=== PATIENT | male | born 1965 | race African-American/Black ===

== ENCOUNTER 2017-04-04 12:06 | Emergency (ER) | payer OTHER ==
[2017-04-04 12:13] VITALS: BP 149/88; PULSE 88; TEMP 98.1; BMI 47.3
--- NOTE | 2017-04-04 13:03 | PDOC ---
History of Present Illness - General Chief Complaint: Injury Stated Complaint: FALL/ LT SIDE PAIN, SOB Time Seen by Provider: 04/04/17 12:38 History Source: Patient Exam Limitations: No Limitations - History of Present Illness Initial Comments: 04/04/17 13:00 CHIEF COMPLAINT: Accidental fall, left rib pain. HISTORY OF PRESENT ILLNESS: Patient is a 51-year-old male, morbidly obese, history of hypertension and asthma presents emergency department for evaluation of left rib pain. 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 Denies any respiratory difficulty only pain to ribs on inspiration. Patient denies hitting his head or any further injury. MEDS: See medication list ALLERGIES: None REVIEW OF SYSTEMS: GENERAL/CONSTITUTIONAL: Awake alert and oriented HEAD, EYES, EARS, NOSE AND THROAT: No change in vision. No facial edema, no bruising. NO active bleeding. Nares intact. RESPIRATORY: No cough, wheezing, or hemoptysis. CARDIAC: Denies chest pain, no shortness of breathe. MUSCULOSKELETAL: No spinal point tenderness, Good ROM to all four extremities. NO CVA tenderness. No lateral neck pain. Pain to left ribs on palpation no crepitus GI/: Denies abdominal pain, no nausea or vomiting, no bloody stool, no Hematuria. SKIN : No erythema or bruising noted. No abrasion or lacerations. NEUROLOGIC: No loss of consciousness, no numbness or tingling. PHYSICAL EXAM: GENERAL: Awake and alert and oriented x3. EYES: The pupils are equal, round, and reactive to light, with clear, conjunctiva. Good extraocular movement. No nystagmus NOSE: No nasal trauma . Midface stable MOUTH: Teeth intact. EARS: The ear canals and tympanic membranes are normal without trauma. No drainage. NECK: No Lower cervical C-spine tenderness, no pain with chin to chest. CHEST: The lungs are clear without crackles, or wheezes. No subcutaneous emphysema. No crepitus. HEART: Heart is regular rhythm, with normal S1 and S2, no murmurs. ABDOMEN: The abdomen is soft and nontender with normal bowel sounds. There is no guarding or rebound. MUSCULOSKELETAL: No spinal point tenderness. No bruising or erythema. Pelvis stable. Pain on palpation to left lateral ribs, no crepitus, no bruising. RECTAL: Patient refused. EXTREMITIES: Extremities are normal. No visible traumatic injury. NEUROLOGICAL:Mental status: The patient is oriented x3. No Generalized headache , Romberg - SKIN: Without edema, erythema or bruising. No abrasions or lacerations. Past History - Past Medical History Allergies/Adverse Reactions: Allergies Allergy/AdvReac Type Severity Reaction Status Date / Time No Known Allergies Allergy Verified 04/04/17 12:10 Home Medications: Ambulatory Orders Albuterol Sulfate [Proventil HFA Inhaler -] 1 - 2 inh PO QID 10/05/13 Amlodipine Besylate [Norvasc -] 10 mg PO DAILY 10/05/13 Fluticasone Propionate [Flovent Diskus] 250 mcg IH ASDIR 10/05/13 Hydrochlorothiazide [Hctz -] 25 mg PO DAILY 10/05/13 Montelukast Na [Singulair -] 10 mg PO HS 10/05/13 Quinapril HCl [Accupril -] 40 mg PO DAILY 10/05/13 Ibuprofen [Motrin -] 600 mg PO TID #21 tablet 10/06/13 Sulfamethoxazole/Trimethoprim [Bactrim DS -] 1 tab PO BID #14 tablet 10/06/13 Ibuprofen [Motrin -] 600 mg PO QID #28 tablet 04/04/17 Asthma: Yes HTN: Yes Other medical history: MORBI.OBESTIY - Surgical History Lung Surgery: Yes - Psycho/Social/Smoking Cessation Hx Anxiety: No Suicidal Ideation: No Smoking History: Never smoked Have you smoked in the past 12 months: No Information on smoking cessation initiated: No Hx Alcohol Use: No Drug/Substance Use Hx: No Substance Use Type: None *Physical Exam - Vital Signs Last Vital Signs Temp Pulse Resp BP Pulse Ox 98.1 F 88 18 149/88 100 04/04/17 12:11 04/04/17 12:11 04/04/17 12:11 04/04/17 12:11 04/04/17 12:11 ED Treatment Course - RADIOLOGY Radiology Studies Ordered: Category Date Time Status CHEST PA & LAT [RAD] Stat Radiology 04/04/17 12:56 Ordered RIBS-LEFT SIDE [RAD] Stat Radiology 04/04/17 12:56 Ordered Medical Decision Making - Medical Decision Making 04/04/17 13:03 A/P: Patient here for evaluation of left rib injury, sent to x-ray. 04/04/17 13:48 X-rays negative for acute cardiopulmonary disease as well as acute rib fracture. Patient with pain 05/24. Will give one tab of percocet prior to DC. Patient with rib contusion will DC patient on Motrin, follow-up if any increased pain respiratory difficulty or any other concerns. 04/04/17 13:55 *DC/Admit/Observation/Transfer Diagnosis at time of Disposition: Rib pain Accidental fall Qualifiers: Encounter type: initial encounter Qualified Code(s): W19.XXXA - Unspecified fall, initial encounter - Discharge Dispostion Disposition: HOME Condition at time of disposition: Good Admit: No - Prescriptions Prescriptions: Ibuprofen [Motrin -] 600 mg PO QID #28 tablet - Referrals Referrals: Terrence Vital MD [Primary Care Provider] - - Patient Instructions Printed Discharge Instructions: DI for Rib Contusion Additional Instructions: Motrin for pain If any increased pain, respiratory difficulty, or any other concerns return to ER - Post Discharge Activity Work/School Note: Back to Work
== END 2017-04-04 14:00 | disposition home or self-care (01) ==
LOC: JERFT 12:06
CPT/HCPCS: 71020-TC; 71101-TC; 99281-25

== ENCOUNTER 2023-08-18 09:15 | Inpatient (IN) | payer OTHER ==
[2023-08-18] MEDS ORDERED: AZITHROMYCIN IVPB 500 MG in DEXTROSE 5%-WATER - 250 ML IVPB ONE (11:06)
[2023-08-18 11:08] LABS: HEMATOCRIT 40.5 % (35.4-49); MCH 28.8 pg (25.7-33.7); MCHC 32.2 g/dl (32.0-35.9); MEAN CELL VOLUME 89.3 fl (80-96); MEAN PLT VOLUME 8.9 fl (7.5-11.1); PLATELET COUNT 209 10^3/uL (134-434); RBC 4.53 M/mm3 (4.00-5.60); RDW 15.4 % (11.9-15.9); WHITE BLOOD COUNT 27.4 K/mm3 (4.0-10.0)
[2023-08-18] MEDS ORDERED: CEFTRIAXONE 1 GM/50 ML BAG ONE (11:12)
[2023-08-18 11:16] LABS: INR 1.19 (0.83-1.09); PROTHROMBIN TIME (PATIENT) 13.8 SEC (9.7-13.0)
[2023-08-18 11:19] LABS: ACTIVATED PTT 28.5 SECONDS (25.2-36.5)
[2023-08-18] MEDS ORDERED: AZITHROMYCIN IVPB 500 MG/250 ML BAG IVPB ONE (11:23)
[2023-08-18 11:24] LABS: POTASSIUM 3.9 mmol/L (3.5-5.1)
[2023-08-18 11:26] LABS: ALBUMIN 3.3 g/dl (3.4-5.0); CALCIUM 9.6 mg/dL (8.5-10.1)
[2023-08-18 11:27] LABS: BLOOD UREA NITROGEN 16.1 mg/dL (7-18)
[2023-08-18 11:28] LABS: ANISOCYTOSIS 0; MACROCYTOSIS 0
[2023-08-18] MEDS: ALBUTEROL SO4 2.5/IPRATROPIUM 0.5 INH SOL 3 ML VIAL.NEB. NEB SCH (11:29)
[2023-08-18 11:31] LABS: BILIRUBIN,TOTAL 1.1 mg/dL (0.2-1)
[2023-08-18] MEDS ORDERED: ACETAMINOPHEN 1000 MG/100 ML BAG IVPB PRN (17:45)
[2023-08-18] MEDS ORDERED: MONTELUKAST NA 10 MG TABLET ONE (21:44)
[2023-08-18] MEDS ORDERED: DOXYCYCLINE HYCLATE 100 MG VIAL ONE (21:45)
[2023-08-18] MEDS: DOXYCYCLINE INJECTION 100 MG in DEXTROSE 5%-WATER 100 ML IVPB SCH (21:58)
[2023-08-18] MEDS: MONTELUKAST NA 10 MG TABLET PO SCH (21:58)
[2023-08-19 01:52] VITALS: BMI 49.5
[2023-08-19] MEDS: ALLOPURINOL 300 MG TABLET (FP) PO SCH (09:26)
[2023-08-19] MEDS: amLODIPine BESYLATE 10 MG TABLET (FP) PO SCH (09:26)
[2023-08-19] MEDS: CYCLOBENZAPRINE HCL 10 MG TABLET (FP) PO SCH (09:26)
[2023-08-19] MEDS: NIFEdipine E.R 60 MG TABLET PO SCH (09:26)
[2023-08-19 09:43] LABS: BASO % 0.2 % (0-2.0); EOS % 1.2 % (0-4.5); HEMATOCRIT 39.6 % (35.4-49); HEMOGLOBIN 12.6 GM/dL (11.7-16.9); MCH 28.7 pg (25.7-33.7); MCHC 31.9 g/dl (32.0-35.9); MEAN CELL VOLUME 90.1 fl (80-96); MEAN PLT VOLUME 9.4 fl (7.5-11.1); MONO % 7.1 % (3.8-10.2); NEUT % 75.5 % (42.8-82.8); PLATELET COUNT 210 10^3/uL (134-434); WHITE BLOOD COUNT 19.2 K/mm3 (4.0-10.0)
[2023-08-19] MEDS ORDERED: COLCHICINE 0.6 MG CAPSULE PO SCH (10:00)
[2023-08-19 10:03] LABS: CALCIUM 9.1 mg/dL (8.5-10.1)
[2023-08-19 10:04] LABS: ALBUMIN 3.1 g/dl (3.4-5.0); MAGNESIUM 2.2 mg/dL (1.8-2.4)
[2023-08-19 10:07] LABS: CREATININE 0.9 mg/dL (0.55-1.3); PHOSPHOROUS 3.8 mg/dL (2.5-4.9)
[2023-08-19 10:09] LABS: BILIRUBIN,TOTAL 0.6 mg/dL (0.2-1)
[2023-08-19] MEDS: DOXYCYCLINE INJECTION 100 MG in DEXTROSE 5%-WATER 100 ML IVPB SCH ×2 (10:40→21:45)
[2023-08-19] MEDS: INDAPAMIDE 2.5 MG TABLET PO SCH (11:50)
[2023-08-19] MEDS: COLCHICINE 0.6 MG TAB PO SCH (11:50)
[2023-08-19] MEDS: CEFTRIAXONE 1 GM in DEXTROSE 5%-WATER - 50 ML IVPB SCH (12:41)
[2023-08-19] MEDS: ENOXAPARIN NA (PORCINE) 40 MG/0.4 ML DISP.SYRIN SQ SCH (17:59)
[2023-08-19] MEDS: MONTELUKAST NA 10 MG TABLET PO SCH (21:45)
[2023-08-19] MEDS ORDERED: CARVEDILOL 12.5 MG TABLET (FP) PO SCH (22:00)
[2023-08-20] MEDS: CEFTRIAXONE 1 GM in DEXTROSE 5%-WATER - 50 ML IVPB SCH (09:52)
[2023-08-20] MEDS: CARVEDILOL 12.5 MG TABLET (FP) PO SCH ×2 (09:53→21:53)
[2023-08-20] MEDS: ENOXAPARIN NA (PORCINE) 40 MG/0.4 ML DISP.SYRIN SQ SCH ×2 (09:53→21:44)
[2023-08-20] MEDS: CYCLOBENZAPRINE HCL 10 MG TABLET (FP) PO SCH (09:53)
[2023-08-20] MEDS: COLCHICINE 0.6 MG TAB PO SCH (09:53)
[2023-08-20] MEDS: amLODIPine BESYLATE 10 MG TABLET (FP) PO SCH (09:53)
[2023-08-20] MEDS: NIFEdipine E.R 60 MG TABLET PO SCH (09:53)
[2023-08-20] MEDS: ALLOPURINOL 300 MG TABLET (FP) PO SCH (09:53)
[2023-08-20] MEDS: INDAPAMIDE 2.5 MG TABLET PO SCH (09:54)
[2023-08-20 10:18] LABS: BASO % 0.3 % (0-2.0); HEMATOCRIT 39.5 % (35.4-49); HEMOGLOBIN 12.8 GM/dL (11.7-16.9); LYMPH % 18.1 % (8-40); MCH 28.8 pg (25.7-33.7); MCHC 32.4 g/dl (32.0-35.9); MEAN CELL VOLUME 88.9 fl (80-96); MEAN PLT VOLUME 9.3 fl (7.5-11.1); MONO % 7.4 % (3.8-10.2); NEUT % 72.2 % (42.8-82.8); PLATELET COUNT 237 10^3/uL (134-434); RBC 4.45 M/mm3 (4.00-5.60); RDW 15.5 % (11.9-15.9); WHITE BLOOD COUNT 13.5 K/mm3 (4.0-10.0)
[2023-08-20 10:26] LABS: POTASSIUM 3.6 mmol/L (3.5-5.1)
[2023-08-20] MEDS: DOXYCYCLINE INJECTION 100 MG in DEXTROSE 5%-WATER 100 ML IVPB SCH ×2 (10:28→21:45)
[2023-08-20 10:34] LABS: BLOOD UREA NITROGEN 16.7 mg/dL (7-18); CREATININE 0.8 mg/dL (0.55-1.3)
[2023-08-20 10:35] LABS: BILIRUBIN,TOTAL 0.4 mg/dL (0.2-1); TOT PROT 6.8 g/dl (6.4-8.2)
[2023-08-20 10:37] LABS: CALCIUM 9.7 mg/dL (8.5-10.1)
[2023-08-20 10:38] LABS: MAGNESIUM 1.9 mg/dL (1.8-2.4)
[2023-08-20] MEDS: FLUTICASONE/UMECLIDIN/VILANTER(100-62.5-25 TRELEGY ELLIPTA) INAHLER IH SCH (14:03)
[2023-08-20] MEDS: methylPREDNISolone NA SUCC 40 MG/1 ML VIAL IVPUSH SCH (17:52)
[2023-08-20] MEDS: MONTELUKAST NA 10 MG TABLET PO SCH (21:44)
[2023-08-21] MEDS: methylPREDNISolone NA SUCC 40 MG/1 ML VIAL IVPUSH SCH ×3 (02:45→21:06)
[2023-08-21] MEDS: ALLOPURINOL 300 MG TABLET (FP) PO SCH (09:11)
[2023-08-21] MEDS: COLCHICINE 0.6 MG TAB PO SCH (09:11)
[2023-08-21] MEDS: amLODIPine BESYLATE 10 MG TABLET (FP) PO SCH (09:11)
[2023-08-21] MEDS: NIFEdipine E.R 60 MG TABLET PO SCH (09:11)
[2023-08-21] MEDS: CEFTRIAXONE 1 GM in DEXTROSE 5%-WATER - 50 ML IVPB SCH (09:13)
[2023-08-21] MEDS: CYCLOBENZAPRINE HCL 10 MG TABLET (FP) PO SCH (09:13)
[2023-08-21] MEDS: ENOXAPARIN NA (PORCINE) 40 MG/0.4 ML DISP.SYRIN SQ SCH ×2 (09:13→21:07)
[2023-08-21] MEDS: FLUTICASONE/UMECLIDIN/VILANTER(100-62.5-25 TRELEGY ELLIPTA) INAHLER IH SCH (09:14)
[2023-08-21] MEDS: CARVEDILOL 12.5 MG TABLET (FP) PO SCH ×2 (09:14→21:07)
[2023-08-21] MEDS: DOXYCYCLINE INJECTION 100 MG in DEXTROSE 5%-WATER 100 ML IVPB SCH ×2 (09:58→21:07)
[2023-08-21 11:09] LABS: BASO % 0.3 % (0-2.0); HEMATOCRIT 41.1 % (35.4-49); HEMOGLOBIN 13.4 GM/dL (11.7-16.9); LYMPH % 14.9 % (8-40); MCH 28.5 pg (25.7-33.7); MCHC 32.5 g/dl (32.0-35.9); MEAN CELL VOLUME 87.5 fl (80-96); MEAN PLT VOLUME 8.8 fl (7.5-11.1); MONO % 7.4 % (3.8-10.2); NEUT % 77.4 % (42.8-82.8); PLATELET COUNT 274 10^3/uL (134-434); RDW 15.1 % (11.9-15.9); WHITE BLOOD COUNT 18.3 K/mm3 (4.0-10.0)
[2023-08-21 11:52] LABS: POTASSIUM 3.9 mmol/L (3.5-5.1)
[2023-08-21 11:57] LABS: BLOOD UREA NITROGEN 17.8 mg/dL (7-18); MAGNESIUM 2.2 mg/dL (1.8-2.4)
[2023-08-21] MEDS: INDAPAMIDE 2.5 MG TABLET PO SCH (11:59)
[2023-08-21 12:00] LABS: CREATININE 0.7 mg/dL (0.55-1.3)
[2023-08-21 12:01] LABS: BILIRUBIN,TOTAL 0.3 mg/dL (0.2-1)
[2023-08-21 12:02] LABS: CALCIUM 10.1 mg/dL (8.5-10.1); TOT PROT 7.3 g/dl (6.4-8.2)
[2023-08-21 15:47] VITALS: RESP 18
[2023-08-21] MEDS: MONTELUKAST NA 10 MG TABLET PO SCH (21:08)
[2023-08-22] MEDS: methylPREDNISolone NA SUCC 40 MG/1 ML VIAL IVPUSH SCH (09:13)
[2023-08-22] MEDS: ALLOPURINOL 300 MG TABLET (FP) PO SCH (09:13)
[2023-08-22] MEDS: amLODIPine BESYLATE 10 MG TABLET (FP) PO SCH (09:13)
[2023-08-22] MEDS: CARVEDILOL 12.5 MG TABLET (FP) PO SCH (09:13)
[2023-08-22] MEDS: CEFTRIAXONE 1 GM in DEXTROSE 5%-WATER - 50 ML IVPB SCH (09:14)
[2023-08-22] MEDS: COLCHICINE 0.6 MG TAB PO SCH (09:14)
[2023-08-22] MEDS: CYCLOBENZAPRINE HCL 10 MG TABLET (FP) PO SCH (09:14)
[2023-08-22] MEDS: ENOXAPARIN NA (PORCINE) 40 MG/0.4 ML DISP.SYRIN SQ SCH (09:14)
[2023-08-22] MEDS: NIFEdipine E.R 60 MG TABLET PO SCH (09:18)
[2023-08-22] MEDS: INDAPAMIDE 2.5 MG TABLET PO SCH (09:18)
[2023-08-22] MEDS: FLUTICASONE/UMECLIDIN/VILANTER(100-62.5-25 TRELEGY ELLIPTA) INAHLER IH SCH (09:23)
[2023-08-22] MEDS ORDERED: PANTOPRAZOLE 40 MG TABLET PO SCH (10:00)
[2023-08-22 10:29] LABS: HEMATOCRIT 41.1 % (35.4-49); HEMOGLOBIN 13.6 GM/dL (11.7-16.9); MEAN PLT VOLUME 8.8 fl (7.5-11.1); PLATELET COUNT 281 10^3/uL (134-434); RBC 4.67 M/mm3 (4.00-5.60); RDW 15.3 % (11.9-15.9); WHITE BLOOD COUNT 21.4 K/mm3 (4.0-10.0)
[2023-08-22 11:05] LABS: ANISOCYTOSIS 0; MACROCYTOSIS 0
[2023-08-22 11:14] LABS: POTASSIUM 3.9 mmol/L (3.5-5.1)
[2023-08-22 11:23] LABS: ALBUMIN 2.8 g/dl (3.4-5.0)
[2023-08-22 11:25] LABS: BILIRUBIN,TOTAL 0.3 mg/dL (0.2-1)
[2023-08-22 11:26] LABS: CREATININE 0.9 mg/dL (0.55-1.3)
[2023-08-22 11:28] LABS: BLOOD UREA NITROGEN 22.1 mg/dL (7-18); TOT PROT 7.2 g/dl (6.4-8.2)
[2023-08-22] MEDS: DOXYCYCLINE INJECTION 100 MG in DEXTROSE 5%-WATER 100 ML IVPB SCH (11:36)
[2023-08-22 13:29] VITALS: PULSE 88
[2023-08-22 16:10] VITALS: BP 143/79; TEMP 97.8
[2023-08-22] MEDS ORDERED: HALOPERIDOL LACTATE 5 MG/ML IM ONE (16:22)
== END 2023-08-22 19:03 | disposition home or self-care (01) | DRG 871 ==
LOC: JER 09:15 → JERBED 17:05 → UNDOADMOB 17:05 → OBSVTOIN 17:05 → INTOOBSV 17:05 → J8W 08-19 01:00 → JERBED 08-19 01:00 → J8W 08-20 17:01 → OBSVTOIN 08-20 17:01 → JERBED 08-20 17:01
PROVIDERS: ADMIT Internal Medicine; ATTEND Nurse Practitioner Family
DX: A41.9 Sepsis, unspecified organism (principal); J18.9 Pneumonia, unspecified organism; J98.11 Atelectasis; Z68.42 Body mass index [BMI] 45.0-49.9, adult; I10 Essential (primary) hypertension; M10.9 Gout, unspecified; J45.909 Unspecified asthma, uncomplicated; G47.33 Obstructive sleep apnea (adult) (pediatric); R91.1 Solitary pulmonary nodule; E66.01 Morbid (severe) obesity due to excess calories
CPT/HCPCS: 0241U-QW; 36415; 71046-TC-FY; 71250-TC; 80053; 83605; 83735; 83880; 84100; 84484; 85025; 85610; 85730; 87040; 87070; 87205; 87899; 93005; 93010; 94660; 99285-25

== ENCOUNTER 2024-03-25 18:46 | Inpatient (IN) | payer OTHER ==
[2024-03-25 20:49] LABS: BASO % 0.9 % (0-2.0); EOS % 3.8 % (0-4.5); HEMATOCRIT 40.7 % (35.4-49); HEMOGLOBIN 13.5 GM/dL (11.7-16.9); LYMPH % 26.8 % (8-40); MCH 29.3 pg (25.7-33.7); MCHC 33.2 g/dl (32.0-35.9); MEAN CELL VOLUME 88.4 fl (80-96); MEAN PLT VOLUME 8.5 fl (7.5-11.1); MONO % 10.6 % (3.8-10.2); NEUT % 57.9 % (42.8-82.8); PLATELET COUNT 272 10^3/uL (134-434); RDW 14.6 % (11.9-15.9); WHITE BLOOD COUNT 13.7 K/mm3 (4.0-10.0)
[2024-03-25 21:12] LABS: POTASSIUM 3.3 mmol/L (3.5-5.1)
[2024-03-25 21:14] LABS: CALCIUM 9.2 mg/dL (8.5-10.1)
[2024-03-25 21:15] LABS: ALBUMIN 3.2 g/dl (3.4-5.0); BLOOD UREA NITROGEN 20.8 mg/dL (7-18)
[2024-03-25 21:20] LABS: BILIRUBIN,TOTAL 0.3 mg/dL (0.2-1); TOT PROT 7.1 g/dl (6.4-8.2)
[2024-03-26] MEDS ORDERED: CLINDAMYCIN 600MG PREMIX IVPB 600 MG/50 ML BAG IVPB ONE (01:06)
[2024-03-26] MEDS: CLINDAMYCIN 600MG PREMIX IVPB 600 MG/50 ML BAG IVPB ONE (01:15)
[2024-03-26 04:40] VITALS: BMI 50.1
[2024-03-26] MEDS: MAGNESIUM 1GM/D5W 100ML - 100 ML IVPB IVPB ONE (08:48)
[2024-03-26] MEDS: POTASSIUM CHLORIDE ORAL LIQUID 20 MEQ/15 ML PO ONE (08:48)
[2024-03-26 09:52] LABS: BASO % 0.5 % (0-2.0); HEMATOCRIT 39.5 % (35.4-49); HEMOGLOBIN 13.3 GM/dL (11.7-16.9); LYMPH % 28.9 % (8-40); MCH 29.4 pg (25.7-33.7); MCHC 33.8 g/dl (32.0-35.9); MEAN CELL VOLUME 87.2 fl (80-96); MEAN PLT VOLUME 8.6 fl (7.5-11.1); MONO % 9.4 % (3.8-10.2); NEUT % 57.2 % (42.8-82.8); PLATELET COUNT 276 10^3/uL (134-434); RBC 4.53 M/mm3 (4.00-5.60); RDW 14.7 % (11.9-15.9); WHITE BLOOD COUNT 12.1 K/mm3 (4.0-10.0)
[2024-03-26] MEDS ORDERED: ENOXAPARIN NA (PORCINE) 40 MG/0.4 ML DISP.SYRIN SQ SCH (10:00)
[2024-03-26 10:17] LABS: POTASSIUM 3.5 mmol/L (3.5-5.1)
[2024-03-26 10:31] LABS: ALBUMIN 3.2 g/dl (3.4-5.0); BLOOD UREA NITROGEN 18.7 mg/dL (7-18); CALCIUM 9.1 mg/dL (8.5-10.1)
[2024-03-26 10:34] LABS: CREATININE 0.8 mg/dL (0.55-1.3); PHOSPHOROUS 4.1 mg/dL (2.5-4.9)
[2024-03-26 10:35] LABS: BILIRUBIN,TOTAL 0.3 mg/dL (0.2-1); TOT PROT 7.2 g/dl (6.4-8.2)
[2024-03-26] MEDS: CARVEDILOL 12.5 MG TABLET (FP) PO SCH (10:43)
[2024-03-26] MEDS: amLODIPine BESYLATE 10 MG TABLET (FP) PO SCH (10:43)
[2024-03-26] MEDS: LISINOPRIL 20 MG TABLET PO SCH (10:43)
[2024-03-26] MEDS: CLINDAMYCIN 600MG PREMIX IVPB 600 MG/50 ML BAG IVPB SCH (12:58)
[2024-03-26] MEDS: CEFTRIAXONE 2 GM in DEXTROSE 5%-WATER 100 ML IVPB SCH (12:58)
[2024-03-26] MEDS ORDERED: CLINDAMYCIN HCL 150 MG CAPSULE (FP) PO SCH (14:00)
[2024-03-27 09:57] LABS: BASO % 0.3 % (0-2.0); HEMATOCRIT 38.7 % (35.4-49); HEMOGLOBIN 12.9 GM/dL (11.7-16.9); LYMPH % 19.5 % (8-40); MCH 29.3 pg (25.7-33.7); MCHC 33.3 g/dl (32.0-35.9); MEAN CELL VOLUME 88.2 fl (80-96); MEAN PLT VOLUME 8.9 fl (7.5-11.1); MONO % 9.6 % (3.8-10.2); NEUT % 67.6 % (42.8-82.8); PLATELET COUNT 280 10^3/uL (134-434); RBC 4.39 M/mm3 (4.00-5.60); RDW 14.8 % (11.9-15.9); WHITE BLOOD COUNT 9.4 K/mm3 (4.0-10.0)
[2024-03-27 10:13] LABS: POTASSIUM 3.8 mmol/L (3.5-5.1)
[2024-03-27] MEDS: ENOXAPARIN NA (PORCINE) 40 MG/0.4 ML DISP.SYRIN SQ SCH (10:24)
[2024-03-27 10:29] LABS: ALBUMIN 2.9 g/dl (3.4-5.0)
[2024-03-27 10:34] LABS: BILIRUBIN,TOTAL 0.2 mg/dL (0.2-1); TOT PROT 6.7 g/dl (6.4-8.2)
[2024-03-27 10:42] LABS: CREATININE 0.7 mg/dL (0.55-1.3)
[2024-03-28 10:08] LABS: BASO % 0.3 % (0-2.0); EOS % 5.9 % (0-4.5); HEMATOCRIT 39.4 % (35.4-49); HEMOGLOBIN 12.9 GM/dL (11.7-16.9); LYMPH % 25.6 % (8-40); MCH 28.8 pg (25.7-33.7); MCHC 32.8 g/dl (32.0-35.9); MEAN CELL VOLUME 87.8 fl (80-96); MEAN PLT VOLUME 8.7 fl (7.5-11.1); MONO % 9.1 % (3.8-10.2); NEUT % 59.1 % (42.8-82.8); PLATELET COUNT 301 10^3/uL (134-434); RBC 4.49 M/mm3 (4.00-5.60); RDW 14.7 % (11.9-15.9); WHITE BLOOD COUNT 11.1 K/mm3 (4.0-10.0)
[2024-03-28 10:31] LABS: POTASSIUM 4.2 mmol/L (3.5-5.1)
[2024-03-28 10:35] LABS: BLOOD UREA NITROGEN 16.2 mg/dL (7-18); CALCIUM 9.1 mg/dL (8.5-10.1)
[2024-03-28 10:36] LABS: MAGNESIUM 2.1 mg/dL (1.8-2.4)
[2024-03-28 10:38] LABS: CREATININE 0.7 mg/dL (0.55-1.3)
[2024-03-28 10:40] LABS: BILIRUBIN,TOTAL 0.3 mg/dL (0.2-1); TOT PROT 6.9 g/dl (6.4-8.2)
[2024-03-28 15:54] VITALS: BP 149/92; PULSE 66; RESP 18; TEMP 97.9
== END 2024-03-28 17:30 | disposition home or self-care (01) | DRG 603 ==
LOC: JER 18:46 → JERBED 03-26 00:25 → J8W 03-26 03:43
PROVIDERS: ADMIT Internal Medicine; ATTEND Nurse Practitioner Acute Care
DX: L02.216 Cutaneous abscess of umbilicus (principal); Z68.43 Body mass index [BMI] 50.0-59.9, adult; E66.01 Morbid (severe) obesity due to excess calories; J45.909 Unspecified asthma, uncomplicated; I10 Essential (primary) hypertension; M10.9 Gout, unspecified; E87.6 Hypokalemia
CPT/HCPCS: 36415; 74177-TC; 80053; 83735; 84100; 85025; 86140; 87070; 87076; 87077; 87081; 87205; 93005; 93010; 94660; 99285-25; Q9967